=== PATIENT | male | born 1950 | race Caucasian/White ===

== ENCOUNTER 2019-07-10 12:59 | Emergency (ER) | payer MEDICARE ==
[2019-07-10] MEDS ORDERED: ASPIRIN 81 MG CHEWABLE TABLET PO ONE (13:30)
[2019-07-10 13:41] LABS: ABSOLUTE NEUTROPHIL COUNT 4.93; BASO % 0.2 % (0-6); EOS % 4.9 % (0-6); GRAN % 59.4 % (47-80); HEMATOCRIT 44.7 % (42.0-52.0); HEMOGLOBIN 14.8 gm/dl (14.0-18.0); LYMPH % 26.3 % (16-45); MEAN CELL VOLUME 93.3 fl (81-97); MEAN CORPUSCULAR HEMOGLOBIN 30.9 pg (27-33); MEAN CORPUSCULAR HGB CONC 33.1 g/dl (32-36); MEAN PLATELET VOLUME 9.7 fl (7.4-10.4); MONO % 9.2 % (0-9); PLATELET COUNT 274 K/uL (130-400); RED BLOOD COUNT 4.79 M/uL (4.40-5.70); RED CELL DISTRIBUTION WIDTH 13.3 % (11.5-14.5); WHITE BLOOD COUNT W/O DIFF 8.3 K/uL (4.2-12.2)
[2019-07-10 13:49] LABS: BLOOD UREA NITROGEN 19 mg/dL (8-23); CREATININE 0.9 mg/dL (0.7-1.2); EST GLOMERULAR FILTRATION RATE > 60 mL/min; TOTAL PROTEIN 6.8 g/dL (6.6-8.7)
[2019-07-10] MEDS: NITROGLYCERIN 0.4MG SL TABLET #25 BTL SL PRN ×3 (13:49→14:06)
[2019-07-10 13:51] LABS: GLUCOSE,RANDOM 229 mg/dL (74-109)
[2019-07-10 13:54] LABS: ALB/GLOB RATIO 1.4 (1.1-1.8); ALKALINE PHOSPHATASE 38 U/L (40-129); ALT/SGPT 22 U/L (<41); AST/SGOT 27 U/L (10.0-50.0); CREATINE PHOSPHOKINASE 266 U/L (39-308)
[2019-07-10 13:57] LABS: CKMB 4.4 ng/mL (<6.73)
[2019-07-10 13:58] LABS: NTpro B-NATRIURETIC PEPTIDE 14.61 pg/mL (<125)
[2019-07-10] MEDS ORDERED: MAGNESIUM HYDROXIDE/AL HYDROX 30 ML, LIDOCAINE VISC 2% 15ML 15 ML PO ONE ×2 (15:17)
--- NOTE | 2019-07-10 17:22 | Emergency Department Record ---
History of Present Illness - General Chief Complaint: Chest Pain Stated Complaint: CHEST PRESSURE Time Seen by Provider: 07/10/19 13:24 Source: Patient Mode of Arrival: Ambulatory Limitations: No limitations - History of Present Illness Initial Comments: pt was traveling from [place] to [place] when he stopped for lunch and then developed indigestion that goes up into his chest and neck. no n/sob/sweating. he has a hx of htn, hi chol, but does not smoke. his dad had an mi in his 60s. discomfort is a 4/10. pt has no hx of cad but has had aflutter in the past MD Complaint: Chest pain Onset/Timin -: Minutes(s) Onset: After eating Pain Location: Substernal Pain Radiation: None Severity: Mild Severity scale (1-10): 6 Quality: Heaviness Consistency: Constant Improves With: Nothing Worsens With: Nothing Treatments Prior to Arrival: None - Related Data Home Medications Medication Instructions Recorded Confirmed Last Taken Apixaban [Eliquis] 5 mg PO BID 07/10/19 07/10/19 07/10/19 Diltiazem HCl [Diltiazem ER] 240 mg PO DAILY 07/10/19 07/10/19 07/10/19 Insulin Glargine,Hum.rec.anlog 75 unit SQ QHS 07/10/19 07/10/19 07/09/19 [Lantus] Lisinopril 10 mg PO DAILY 07/10/19 07/10/19 07/10/19 Metformin HCl 1,000 mg PO BID 07/10/19 07/10/19 07/10/19 Lenox-3 Fatty Acids [Lenox-3] 1,000 mg PO BID 07/10/19 07/10/19 07/10/19 Simvastatin 20 mg PO DAILY 07/10/19 07/10/19 Unknown Tamsulosin HCl [Flomax] 0.4 mg PO DAILY 07/10/19 07/10/19 07/10/19 Allergies Allergy/AdvReac Type Severity Reaction Status Date / Time No Known Drug Allergies Allergy Verified 07/10/19 13:06 Travel Screening - Travel/Exposure Within Last 30 Days Have you traveled within the last 30 days?: No Review of Systems Reviewed: No additional complaints except as noted below Constitutional: Reports: As per HPI. Denies: Chills, Fever, Malaise, Night sweats, Weakness, Weight change Eyes: Reports: As per HPI. Denies: Eye discharge, Eye pain, Photophobia, Vision change ENT: Reports: As per HPI. Denies: Congestion, Dental pain, Ear pain, Epistaxis, Hearing loss, Throat pain Respiratory: Reports: As per HPI. Denies: Cough, Dyspnea, Hemoptysis, Stridor, Wheezes Cardiovascular: Reports: As per HPI. Denies: Arrhythmia, Chest pain, Dyspnea on exertion, Edema, Murmurs, Orthopnea, Palpitations, Paroxysmal nocturnal dyspnea, Rheumatic Fever, Syncope Endocrine: Reports: As per HPI. Denies: Fatigue, Heat or cold intolerance, Polydipsia, Polyuria Gastrointestinal: Reports: As per HPI. Denies: Abdominal pain, Constipation, Diarrhea, Hematemesis, Hematochezia, Melena, Nausea, Vomiting Genitourinary: Reports: As per HPI. Denies: Dysuria, Frequency, Hematuria, Incontinence, Retention, Testicular pain, Testicular mass, Urgency Musculoskeletal: Reports: As per HPI. Denies: Arthralgia, Back pain, Gout, [place] int swelling, Myalgia, Neck pain Skin: Reports: As per HPI. Denies: Bruising, Change in color, Change in hair/nails, Lesions, Pruritus, Rash Neurological: Reports: As per HPI. Denies: Abnormal gait, Confusion, Headache, Numbness, Paresthesias, Seizure, Tingling, Tremors, Vertigo, Weakness Psychiatric: Reports: As per HPI. Denies: Anxiety, Auditory hallucinations, Depression, Homicidal thoughts, Suicidal thoughts, Visual hallucinations Hematological/Lymphatic: Reports: As per HPI. Denies: Anemia, Blood Clots, Easy bleeding, Easy bruising, Swollen glands Past Medical History - SOCIAL HISTORY Smoking Status: Never smoker Alcohol Use: Rare Drug Use: None - CARDIOVASCULAR Hx Cardio Disorders: Yes Hx Cardiac Cath: Yes Hx Hypertension: Yes Hx Irregular Heartbeat: Yes (atrial flutter) Comment:: high cholesterol - NEURO Hx Neuro Disorders: No - GI Hx GI Disorders: No - Hx Genitourinary Disorders: No - ENDOCRINE Hx Endocrine Disorders: Yes Hx Diabetes: Yes - MUSCULOSKELETAL Hx Musculoskeletal Disorders: No - PSYCH Hx Psych Problems: No - HEMATOLOGY/ONCOLOGY Hx Hematology/Oncology Disorders: No Family Medical History Any Significant Family History?: Yes Hx Cancer: Mother Hx Diabetes: Father Physical Exam - General General Appearance: Alert, Oriented x3, Cooperative, Mild distress - Head Head exam: Normal inspection - Eye Eye exam: Normal appearance, PERRL, EOMI Pupils: Normal accommodation - ENT ENT exam: Normal exam, Mucous membranes moist, Normal external ear exam, Normal orophraynx Ear exam: Normal external inspection. negative: External canal tenderness Nasal Exam: Normal inspection. negative: Discharge, Sinus tenderness Mouth exam: Normal external inspection, Tongue normal Teeth exam: Normal inspection. negative: Dental caries Throat exam: Normal inspection. negative: Tonsillar erythema, Tonsillar exudate - Neck Neck exam: Normal inspection, Full ROM. negative: Tenderness - Respiratory Respiratory exam: Normal lung sounds bilaterally. negative: Respiratory distress - Cardiovascular Cardiovascular Exam: Regular rate, Normal rhythm, Normal heart sounds - GI/Abdominal GI/Abdominal exam: Soft, Normal bowel sounds. negative: Tenderness - Rectal Rectal exam: Deferred - exam: Deferred - Extremities Extremities exam: Normal inspection, Full ROM, Normal capillary refill. negative: Tenderness - Back Back exam: Reports: Normal inspection, Full ROM. Denies: Muscle spasm, Rash noted, Tenderness - Neurological Neurological exam: Alert, CN II-XII intact, Normal gait, Oriented X3 - Psychiatric Psychiatric exam: Normal affect, Normal mood - Skin Skin exam: Dry, Intact, Normal color, Warm Course Vital Signs 07/10/19 07/10/19 07/10/19 13:02 13:51 13:55 Pulse Rate 84 Pulse Rate [ 76 82 Juice Mixer ] Respiratory 20 20 18 Rate Blood Pressure 138/74 Blood Pressure 145/78 137/74 [Left Arm] Pulse Ox 98 97 97 07/10/19 07/10/19 07/10/19 14:00 14:07 14:29 Pulse Rate Pulse Rate [ 80 89 77 Juice Mixer ] Respiratory 18 20 18 Rate Blood Pressure Blood Pressure 149/73 125/58 123/55 [Left Arm] Pulse Ox 96 95 97 - Reevaluation(s) Reevaluation #1: 07/10/19 17:25 ntg did not help pain. 90 minutes later pain spontaneously resolved and pt wanted to go home. i d/w pt the need for admission or at the minimum a 4 hr troponin. he would not aagree to admission but did agree to 4 hr troponin Reevaluation #2: 07/10/19 17:53 pts 2nd enzymes neg. cxr neg Medical Decision Making - Lab Data Result diagrams: 07/10/19 13:15 07/10/19 13:15 Lab Results 07/10/19 07/10/19 07/10/19 Range/Units 13:15 13:15 13:15 WBC 8.3 (4.2-12.2) K/uL RBC 4.79 (4.40-5.70) M/uL Hgb 14.8 (14.0-18.0) gm/dl Hct 44.7 (42.0-52.0) % MCV 93.3 (81-97) fl MCH 30.9 (27-33) pg MCHC 33.1 (32-36) g/dl RDW 13.3 (11.5-14.5) % Plt Count 274 (130-400) K/uL MPV 9.7 (7.4-10.4) fl Gran % 59.4 (47-80) % Lymphocytes % 26.3 (16-45) % Monocytes % 9.2 H (0-9) % Eosinophils % 4.9 (0-6) % Basophils % 0.2 (0-6) % Absolute Neutrophils 4.93 D-Dimer 0.50 (0-0.59) mg/L FEU Sodium 139 (136-145) mmol/L Potassium 4.5 (3.4-4.5) mmol/L Chloride 99 (98-107) mmol/L Carbon Dioxide 25.0 (22-29) mmol/L Anion Gap 15.0 (7-16) BUN 19 (8-23) mg/dL Creatinine 0.9 (0.7-1.2) mg/dL Estimated GFR > 60 mL/min Random Glucose 229 H (74-109) mg/dL Calcium 9.2 (8.8-10.2) mg/dL Total Bilirubin 0.30 (0.2-1.0) mg/dL AST 27 (10.0-50.0) U/L ALT 22 (<41) U/L Alkaline Phosphatase 38 L (40-129) U/L Creatine Kinase 266 (39-308) U/L CK-MB (CK-2) 4.4 (<6.73) ng/mL Troponin T < 0.010 (0-0.010) ng/mL NT-Pro-B Natriuret Pep 14.61 (<125) pg/mL Total Protein 6.8 (6.6-8.7) g/dL Albumin 4.0 (4.0-5.0) g/dL Globulin 2.8 (1.4-4.8) gm/dL Albumin/Globulin Ratio 1.4 (1.1-1.8) Disposition Disposition: Discharge Clinical Impression: Chest pain Qualifiers: Chest pain type: unspecified Qualified Code(s): R07.9 - Chest pain, unspecified Disposition: Home, Self-Care Condition: (1) Good Instructions: Chest Pain (ED) Additional Instructions: follow up with friday with family doctor and with payment manager without fail. return sooner if worse. Forms: Patient Portal Access Quality - Quality Measures Quality Measures: N/A - Blood Pressure Screening Does Patient Have Any of the Following: Active Dx of HTN Blood Pressure Classification: Pre-Hypertensive BP Reading Systolic Measurement: 138 Diastolic Measurement: 74 Screening for High Blood Pressure: Patient Exclusion, Hx of HTN [[id number]]
[2019-07-10 17:26] LABS: CKMB 4.1 ng/mL (<6.73)
--- NOTE | 2019-07-10 17:50 | RADIOLOGY REPORT ---
EXAMINATION: Frontal and Lateral Chest EXAM DATE: 07/10/2019 5:19 PM INDICATION: cp CHEST PRESSURE AFTER EATING LUNCH TODAY. FINDINGS: Frontal and lateral views show clear lungs, normal heart size, and normal hilar and mediast inal structures. Old granulomatous disease incidentally noted. IMPRESSION: Normal chest. Dictated by: Paul Wilson MD on 07/10/2019 5:46 PM. .
== END 2019-07-10 18:08 | disposition home or self-care (01) ==
LOC: ER 12:59
DX: R07.89 Other chest pain (principal); I10 Essential (primary) hypertension; E11.9 Type 2 diabetes mellitus without complications; Z79.4 Long term (current) use of insulin
CPT/HCPCS: 71046; 80053; 82550; 82553; 83880; 84484; 85025; 85379; 93005; 93010; 99285